=== PATIENT | female | born 1955 | race Caucasian/White ===

== ENCOUNTER 2017-12-06 14:51 | Emergency (ER) | payer MEDICAID, OTHER ==
[~2017-12-06] VITALS: Ht 167.6 cm; Wt 69.0 kg
[~2017-12-06 14:51] MED LIST: ASPI-518; CLON0.1T; COMBIV; ESCI20TA36; INSLAN; LISI-604; OXYB5TAB11; PRAV20TA57; SERT50TA12; TRAM50TA; [UNRECOGNIZED DRUG - CODE]
[2017-12-06 14:59] VITALS: BP 98/62
== END 2017-12-06 21:00 | disposition left against medical advice (07) ==
LOC: ER 14:51
DX: M25.551 Pain in right hip (principal); I10 Essential (primary) hypertension; E11.9 Type 2 diabetes mellitus without complications; F20.9 Schizophrenia, unspecified; F17.200 Nicotine dependence, unspecified, uncomplicated; Z53.21 Procedure and treatment not carried out due to patient leaving prior to being seen by health care provider

== ENCOUNTER 2018-07-29 13:08 | Emergency (ER) | payer OTHER ==
[~2018-07-29] VITALS: Ht 170.2 cm; Wt 68.0 kg
[~2018-07-29 13:08] MED LIST changes: +HYDR50TA55; -[UNRECOGNIZED DRUG - CODE]
[2018-07-29] MEDS ORDERED: SODIUM CHLORIDE 0.9% 1,000 ML IV ONE ×2 (14:21→16:51)
[2018-07-29 14:47] LABS: BASOPHILS % 0.5 % (0.0-2.0); HEMATOCRIT. 37.3 % (36.0-48.0); HEMOGLOBIN. 12.3 g/dL (12.0-16.0); LYMPHOCYTES % 22.8 % (20.0-50.0); MEAN CORPUSCULAR HEMOGLOBIN 31.9 pg (28.0-32.0); MEAN CORPUSCULAR VOLUME 96.9 fL (81.0-99.0); MEAN PLATELET VOLUME 9.1 fl (7.4-10.4); NEUTROPHILS % 65.7 % (40.0-76.0); PLATELET 236 x1000/uL (130-400); RED BLOOD CELL COUNT 3.85 mill/uL (4.2-5.4); RED CELL DISTRIBUTION WIDTH 14.3 % (11.6-14.6)
[2018-07-29 14:52] LABS: CHLORIDE 107 mEq/L (98-107)
[2018-07-29 14:54] LABS: INR 1.1; PROTHROMBIN TIME 10.6 sec (9.1-11.1)
[2018-07-29 15:27] LABS: CLARITY URINE CLOUDY (CLEAR); COLOR URINE YELLOW (YELLOW); KETONES URINE NEGATIVE (NEGATIVE); LEUKOCYTE ESTERASE URINE 3+ (NEGATIVE); NITRITE URINE POSITIVE (NEGATIVE); OCCULT BLOOD URINE TRACE (NEGATIVE); PROTEIN URINE NEGATIVE (NEGATIVE); SPECIFIC GRAVITY URINE 1.013 (1.005-1.030); UROBILINOGEN URINE 0.2 E.U./dL (0.2-1.0)
[2018-07-29] MEDS ORDERED: CEFTRIAXONE 1 G PREMIX 50 ML IV ONE (16:15)
[2018-07-29] MEDS ORDERED: IOHEXOL-350 100 ML BOTTLE ONE (16:32)
[2018-07-29 19:35] VITALS: BP 121/80
== END 2018-07-29 19:45 ==
LOC: ER 13:16 → CANRESERV 15:30 → ENRESERV 15:30 → CANBEDREQ 18:43 → ER 19:45
DX: N39.0 Urinary tract infection, site not specified (principal)
CPT/HCPCS: 36415; 71045; 74177; 80053; 81003; 83605; 83690; 85025; 85610; 87040; 87077; 87086; 87186; 93005; 96361; 96365; 99284; J0696; J7030; Q9967; Z7610

== ENCOUNTER 2018-08-13 19:55 | Emergency (ER) | payer OTHER ==
[~2018-08-13] VITALS: Ht 172.7 cm; Wt 68.0 kg
[2018-08-14 01:20] LABS: BASOPHILS % 0.5 % (0.0-2.0); EOSINOPHILS % 3.1 % (0.0-5.0); HEMOGLOBIN. 11.1 g/dL (12.0-16.0); LYMPHOCYTES % 24.8 % (20.0-50.0); MEAN CORPUSCULAR HEMOGLOBIN 32.4 pg (28.0-32.0); MEAN CORPUSCULAR VOLUME 96.5 fL (81.0-99.0); MEAN PLATELET VOLUME 9.1 fl (7.4-10.4); MONOCYTES % 12.6 % (2.0-8.0); PLATELET 182 x1000/uL (130-400); RED BLOOD CELL COUNT 3.42 mill/uL (4.2-5.4); RED CELL DISTRIBUTION WIDTH 14.5 % (11.6-14.6)
[2018-08-14 01:21] LABS: CHLORIDE 107 mEq/L (98-107)
[2018-08-14 01:23] LABS: INR 1.1; PROTHROMBIN TIME 10.8 sec (9.1-11.1)
[2018-08-14 02:20] VITALS: BP 110/51
== END 2018-08-14 02:53 | disposition left against medical advice (07) ==
LOC: ER 19:55
DX: S00.03XA Contusion of scalp, initial encounter (principal); W01.0XXA Fall on same level from slipping, tripping and stumbling without subsequent striking against object, initial encounter; R00.1 Bradycardia, unspecified; E11.9 Type 2 diabetes mellitus without complications; Y93.89 Activity, other specified; Y92.122 Bedroom in nursing home as the place of occurrence of the external cause
CPT/HCPCS: 36415; 71045; 83880; 84484; 93005; 99284

== ENCOUNTER 2020-05-19 17:16 | Emergency (ER) | payer MEDICARE, OTHER ==
[~2020-05-19] VITALS: Ht 175.3 cm; Wt 100.0 kg
[~2020-05-19 17:16] MED LIST changes: -ESCI20TA36; +ESCI20TA43; -OXYB5TAB11; +OXYB5TAB17
[2020-05-19 19:11] LABS: BASOPHILS % 0.6 % (0.0-2.0); EOSINOPHILS % 3.9 % (0.0-5.0); HEMATOCRIT. 35.6 % (36.0-48.0); HEMOGLOBIN. 11.8 g/dL (12.0-16.0); LYMPHOCYTES % 21.7 % (20.0-50.0); MEAN CORPUSCULAR HEMOGLOBIN 31.9 pg (28.0-32.0); MEAN CORPUSCULAR VOLUME 96.6 fL (81.0-99.0); MEAN PLATELET VOLUME 9.6 fl (7.4-10.4); MONOCYTES % 8.8 % (2.0-8.0); PLATELET 201 x1000/uL (130-400); RED BLOOD CELL COUNT 3.68 mill/uL (4.2-5.4); RED CELL DISTRIBUTION WIDTH 14.4 % (11.6-14.6)
[2020-05-19 19:14] LABS: CHLORIDE 109 mEq/L (98-107)
[2020-05-19 19:18] LABS: CLARITY URINE CLOUDY (CLEAR); COLOR URINE YELLOW (YELLOW); KETONES URINE NEGATIVE (NEGATIVE); LEUKOCYTE ESTERASE URINE 3+ (NEGATIVE); NITRITE URINE POSITIVE (NEGATIVE); OCCULT BLOOD URINE 1+ (NEGATIVE); PROTEIN URINE TRACE (NEGATIVE); SPECIFIC GRAVITY URINE 1.017 (1.005-1.030); UROBILINOGEN URINE 0.2 E.U./dL (0.2-1.0)
[2020-05-19 19:18] LABS: ETHANOL BLOOD < 10 mg/dL
[2020-05-19] MEDS ORDERED: NITROFURANTOIN 100MG M/M CAPSULE PO ONE (19:45)
[2020-05-19 20:03] LABS: *AMPHETAMINES SCREEN URINE NEGATIVE (NEGATIVE); *BARBITURATES SCREEN URINE NEGATIVE (NEGATIVE); *BENZODIAZEPINES SCREEN URINE NEGATIVE (NEGATIVE); *COCAINE SCREEN URINE NEGATIVE (NEGATIVE)
[2020-05-19 20:04] LABS: CANNABINOID URINE SCREEN NEGATIVE (NEGATIVE); METHADONE URINE SCREEN NEGATIVE (NEGATIVE); OPIATES URINE SCREEN NEGATIVE (NEGATIVE); PHENCYCLIDINE URINE SCREEN NEGATIVE (NEGATIVE)
[2020-05-19 21:05] VITALS: BP 121/71
== END 2020-05-19 21:35 | disposition home or self-care (01) ==
LOC: ER 17:16
DX: S09.8XXA Other specified injuries of head, initial encounter (principal); N39.0 Urinary tract infection, site not specified; S16.1XXA Strain of muscle, fascia and tendon at neck level, initial encounter; I10 Essential (primary) hypertension; E11.9 Type 2 diabetes mellitus without complications; W01.0XXA Fall on same level from slipping, tripping and stumbling without subsequent striking against object, initial encounter; Y93.89 Activity, other specified; Y92.89 Other specified places as the place of occurrence of the external cause; Z79.82 Long term (current) use of aspirin; Z79.899 Other long term (current) drug therapy
CPT/HCPCS: 36415; 71045; 80053; 80305; 80320; 81003; 83605; 84484; 85025; 87077; 87186; 93005; 99285; G0480

== ENCOUNTER 2020-06-20 09:50 | Emergency (ER) | payer MEDICARE, OTHER ==
[~2020-06-20] VITALS: Ht 170.2 cm; Wt 73.0 kg
[2020-06-20 12:00] VITALS: BP 110/48
[2020-06-20 12:05] LABS: BASOPHILS % 0.5 % (0.0-2.0); EOSINOPHILS % 0.9 % (0.0-5.0); HEMATOCRIT. 38.3 % (36.0-48.0); HEMOGLOBIN. 12.6 g/dL (12.0-16.0); LYMPHOCYTES % 13.3 % (20.0-50.0); MEAN CORPUSCULAR HEMOGLOBIN 31.8 pg (28.0-32.0); MEAN CORPUSCULAR VOLUME 96.6 fL (81.0-99.0); MEAN PLATELET VOLUME 9.2 fl (7.4-10.4); MONOCYTES % 10.7 % (2.0-8.0); NEUTROPHILS % 74.6 % (40.0-76.0); PLATELET 145 x1000/uL (130-400); RED BLOOD CELL COUNT 3.97 mill/uL (4.2-5.4); RED CELL DISTRIBUTION WIDTH 14.4 % (11.6-14.6)
[2020-06-20 12:15] LABS: CHLORIDE 113 mEq/L (98-107); INR 1.1; PROTHROMBIN TIME 11.8 sec (9.6-11.0)
== END 2020-06-20 15:42 | disposition home or self-care (01) ==
LOC: ER 09:56
DX: U07.1 COVID-19 (principal); I11.9 Hypertensive heart disease without heart failure; E11.9 Type 2 diabetes mellitus without complications; Z79.4 Long term (current) use of insulin
CPT/HCPCS: 36415; 71045; 80048; 83605; 83615; 84145; 85025; 85610; 87040; 99284; C9803; U0003

== ENCOUNTER 2023-07-27 12:55 | Emergency (ER) | payer MEDICARE, OTHER ==
[~2023-07-27] VITALS: Ht 167.6 cm; Wt 59.0 kg
[~2023-07-27 12:55] MED LIST changes: +ESCI20TA37; -ESCI20TA43; -LISI-604; +LISI20TA31; +SERT-422; -SERT50TA12
[2023-07-27 12:59] VITALS: O2SAT 100
[2023-07-27 14:20] LABS: BASOPHILS % 0.3 % (0.0-2.0); EOSINOPHILS % 0.3 % (0.0-5.0); HEMATOCRIT. 32.3 % (36.0-48.0); HEMOGLOBIN. 10.8 g/dL (12.0-16.0); LYMPHOCYTES % 8.7 % (20.0-50.0); MEAN CORPUSCULAR HEMOGLOBIN 31.6 pg (28.0-32.0); MEAN CORPUSCULAR HGB CONC 33.5 g/dL (31.0-37.0); MEAN CORPUSCULAR VOLUME 94.1 fL (81.0-99.0); MEAN PLATELET VOLUME 9.1 fl (7.4-10.4); MONOCYTES % 8.5 % (2.0-8.0); NEUTROPHILS % 82.2 % (40.0-76.0); PLATELET 240 x1000/uL (130-400); RED BLOOD CELL COUNT 3.43 mill/uL (4.2-5.4); RED CELL DISTRIBUTION WIDTH 14.2 % (11.6-14.6)
[2023-07-27 14:29] VITALS: BP 138/75; PULSE 60; RESP 14; TEMP 98
[2023-07-27 14:29] LABS: ALANINE AMINOTRANSFERASE 28 IU/L (10-49); ALBUMIN 3.9 g/dL (3.2-4.8); ASPARTATE AMINOTRANSFERASE 54 IU/L (<34); BILIRUBIN TOTAL 0.5 mg/dL (0.1-1.0); CALCIUM 9.3 mg/dL (8.7-10.4); CARBON DIOXIDE 23 mEq/L (21-32); CHLORIDE 102 mEq/L (98-107); CREATININE 1.2 mg/dL (0.6-1.0); GLUCOSE 177 mg/dL (70-105); POTASSIUM 4.1 mEq/L (3.5-5.1); PROTEIN TOTAL 9.4 g/dL (6.0-8.3); SODIUM 131 mEq/L (136-145); TROPONIN I HIGH SENSITIVITY 9 ng/L (3.0-34); UREA NITROGEN BLOOD 31 mg/dL (9-23)
[2023-07-27] MEDS: SODIUM CHLORIDE 0.9% 1,000 ML IV ONE (14:30)
== END 2023-07-27 22:55 | disposition home or self-care (01) ==
LOC: ER 12:55
DX: E86.0 Dehydration (principal); D64.9 Anemia, unspecified; F32.9 Major depressive disorder, single episode, unspecified; E11.9 Type 2 diabetes mellitus without complications; I10 Essential (primary) hypertension; Z87.440 Personal history of urinary (tract) infections; W18.39XA Other fall on same level, initial encounter; Y93.89 Activity, other specified; Y92.89 Other specified places as the place of occurrence of the external cause; Y99.8 Other external cause status
CPT/HCPCS: 80053; 85025; 84484; 36415; 73060; 73610; 70450; 93005; 96360; 99285; J7030; Z7610 ×3

== ENCOUNTER 2023-08-29 14:18 | Emergency (ER) | payer MEDICARE, OTHER ==
[~2023-08-29] VITALS: Ht 162.6 cm; Wt 75.0 kg
[~2023-08-29 14:18] MED LIST changes: +OXYB-52; -OXYB5TAB17
[2023-08-29 14:20] VITALS: O2SAT 97
[2023-08-29 15:32] LABS: BASOPHILS % 0.4 % (0.0-2.0); EOSINOPHILS % 1.4 % (0.0-5.0); HEMATOCRIT. 31.9 % (36.0-48.0); HEMOGLOBIN. 10.4 g/dL (12.0-16.0); MEAN CORPUSCULAR HEMOGLOBIN 29.9 pg (28.0-32.0); MEAN CORPUSCULAR HGB CONC 32.5 g/dL (31.0-37.0); MEAN PLATELET VOLUME 8.7 fl (7.4-10.4); MONOCYTES % 10.2 % (2.0-8.0); PLATELET 247 x1000/uL (130-400); RED BLOOD CELL COUNT 3.47 mill/uL (4.2-5.4); RED CELL DISTRIBUTION WIDTH 15.1 % (11.6-14.6)
[2023-08-29 15:40] LABS: INR 1.1; PROTHROMBIN TIME 12.2 sec (9.6-11.0)
[2023-08-29 15:45] LABS: ALANINE AMINOTRANSFERASE 21 IU/L (10-49); ALBUMIN 3.8 g/dL (3.2-4.8); ASPARTATE AMINOTRANSFERASE 24 IU/L (<34); BILIRUBIN TOTAL 0.4 mg/dL (0.1-1.0); CARBON DIOXIDE 26 mEq/L (21-32); CHLORIDE 102 mEq/L (98-107); GLUCOSE 153 mg/dL (70-105); POTASSIUM 3.9 mEq/L (3.5-5.1); PROTEIN TOTAL 8.6 g/dL (6.0-8.3); SODIUM 134 mEq/L (136-145); TROPONIN I HIGH SENSITIVITY 7 ng/L (3.0-34); UREA NITROGEN BLOOD 20 mg/dL (9-23)
[2023-08-30 09:30] VITALS: BP 138/72; PULSE 77; RESP 16; TEMP 98.8
== END 2023-08-30 10:39 | disposition home or self-care (01) ==
LOC: ER 14:45
DX: M79.604 Pain in right leg (principal); F32.A Depression, unspecified; E11.9 Type 2 diabetes mellitus without complications; I10 Essential (primary) hypertension
CPT/HCPCS: 36415; 71045; 80053; 84484; 85025; 93005; 93971; 99285

== ENCOUNTER 2024-10-20 19:24 | Emergency (ER) | payer MEDICARE, MEDICAID ==
[~2024-10-20] VITALS: Ht 172.7 cm; Wt 69.0 kg
[~2024-10-20 19:24] MED LIST changes: +ASPI-1406 PO; -ASPI-518; -CLON0.1T; -COMBIV; +CYCL5TAB3 PO; -ESCI20TA37; +GABA-1180 PO; -HYDR50TA55; +IBUP-2029 PO; -INSLAN; +INSU100I28 SUBCUT; +LIP40 PO; -LISI20TA31; +LISI20TA31 PO; +LOPE2TAB26 PO; +MELA5TAB21 PO; +MULT-380 PO; -OXYB-52; +OXYBUTYNIN 10 MG PO; -PRAV20TA57; +QUET25TA36 PO; -SERT-422; +SERT25TA74 PO; +TEMA15CA PO; -TRAM50TA; +TRAM50TA3 PO
[2024-10-20 19:40] VITALS: O2SAT 98
[2024-10-20 20:47] LABS: BASOPHILS % 0.4 % (0.0-2.0); EOSINOPHILS % 2.5 % (0.0-5.0); HEMATOCRIT. 34.4 % (36.0-48.0); HEMOGLOBIN. 11.5 g/dL (12.0-16.0); LYMPHOCYTES % 24.4 % (20.0-50.0); MEAN CORPUSCULAR HEMOGLOBIN 31.6 pg (28.0-32.0); MEAN CORPUSCULAR HGB CONC 33.3 g/dL (31.0-37.0); MEAN CORPUSCULAR VOLUME 94.7 fL (81.0-99.0); MEAN PLATELET VOLUME 9.4 fl (7.4-10.4); MONOCYTES % 14.2 % (2.0-8.0); NEUTROPHILS % 58.5 % (40.0-76.0); PLATELET 202 x1000/uL (130-400); RED BLOOD CELL COUNT 3.63 mill/uL (4.2-5.4); RED CELL DISTRIBUTION WIDTH 13.7 % (11.6-14.6); WHITE BLOOD COUNT 4.8 x1000/uL (4.5-11.0)
[2024-10-20 20:53] LABS: POTASSIUM 4.3 mEq/L (3.5-5.1)
[2024-10-20 20:54] LABS: CALCIUM 9.2 mg/dL (8.7-10.4)
[2024-10-20 20:59] LABS: CREATININE 1.1 mg/dL (0.6-1.0)
[2024-10-20] MEDS: SODIUM CHLORIDE 0.9% 250 ML IV ONE (21:28)
[2024-10-20 21:44] LABS: CLARITY URINE CLEAR (CLEAR); COLOR URINE YELLOW (YELLOW); GLUCOSE URINE NEGATIVE (NEGATIVE); KETONES URINE NEGATIVE (NEGATIVE); LEUKOCYTE ESTERASE URINE 1+ (NEGATIVE); NITRITE URINE NEGATIVE (NEGATIVE); OCCULT BLOOD URINE NEGATIVE (NEGATIVE); PROTEIN URINE NEGATIVE (NEGATIVE); SPECIFIC GRAVITY URINE 1.004 (1.005-1.030); UROBILINOGEN URINE 0.2 E.U./dL (0.2-1.0)
[2024-10-20 21:56] LABS: BACTERIA URINE NONE SEEN; RBC URINE NONE SEEN /hpf (0-2); SQUAMOUS EPITHELIAL CELL URINE RARE /lpf (RARE/1+)
[2024-10-20 23:37] VITALS: BP 110/68; PULSE 74; RESP 19; TEMP 36.5; O2SAT 98
== END 2024-10-21 00:05 | disposition home or self-care (01) ==
LOC: ER 19:24
DX: E86.0 Dehydration (principal); F32.A Depression, unspecified; E78.00 Pure hypercholesterolemia, unspecified; E11.9 Type 2 diabetes mellitus without complications; F41.9 Anxiety disorder, unspecified; I51.9 Heart disease, unspecified; Z79.899 Other long term (current) drug therapy; Z79.82 Long term (current) use of aspirin; Z79.4 Long term (current) use of insulin
CPT/HCPCS: 99283; 80048; 81003; 85025; 36415; J7050

== ENCOUNTER 2024-10-25 11:36 | Emergency (ER) | payer MEDICARE, MEDICAID ==
[~2024-10-25] VITALS: Ht 165.1 cm; Wt 78.0 kg
[2024-10-25 11:38] VITALS: O2SAT 96
[2024-10-25 12:28] LABS: BASOPHILS % 0.4 % (0.0-2.0); EOSINOPHILS % 1.2 % (0.0-5.0); HEMOGLOBIN. 11.5 g/dL (12.0-16.0); LYMPHOCYTES % 17.5 % (20.0-50.0); MEAN CORPUSCULAR HEMOGLOBIN 31.1 pg (28.0-32.0); MEAN CORPUSCULAR HGB CONC 32.8 g/dL (31.0-37.0); MEAN CORPUSCULAR VOLUME 94.9 fL (81.0-99.0); MEAN PLATELET VOLUME 9.4 fl (7.4-10.4); MONOCYTES % 7.3 % (2.0-8.0); NEUTROPHILS % 73.6 % (40.0-76.0); PLATELET 196 x1000/uL (130-400); RED BLOOD CELL COUNT 3.68 mill/uL (4.2-5.4); RED CELL DISTRIBUTION WIDTH 13.5 % (11.6-14.6); WHITE BLOOD COUNT 5.6 x1000/uL (4.5-11.0)
[2024-10-25] MEDS ORDERED: ACETAMINOPHEN 325MG TABLET PO ONE (12:30)
[2024-10-25] MEDS: SODIUM CHLORIDE 0.9% 1,000 ML IV ONE (12:33)
[2024-10-25 12:35] LABS: CHLORIDE 106 mEq/L (98-107); POTASSIUM 3.9 mEq/L (3.5-5.1); SODIUM 135 mEq/L (136-145)
[2024-10-25 12:36] LABS: CARBON DIOXIDE 25 mEq/L (21-32)
[2024-10-25 12:37] LABS: CALCIUM 9.2 mg/dL (8.7-10.4)
[2024-10-25 12:41] LABS: GLUCOSE 137 mg/dL (70-105); UREA NITROGEN BLOOD 13 mg/dL (9-23)
[2024-10-25 12:42] LABS: TROPONIN I HIGH SENSITIVITY 6 ng/L (3.0-34)
[2024-10-25 12:53] LABS: CLARITY URINE CLEAR (CLEAR); COLOR URINE YELLOW (YELLOW); GLUCOSE URINE NEGATIVE (NEGATIVE); KETONES URINE NEGATIVE (NEGATIVE); LEUKOCYTE ESTERASE URINE 2+ (NEGATIVE); NITRITE URINE NEGATIVE (NEGATIVE); OCCULT BLOOD URINE NEGATIVE (NEGATIVE); PROTEIN URINE NEGATIVE (NEGATIVE); SPECIFIC GRAVITY URINE 1.004 (1.005-1.030); UROBILINOGEN URINE 0.2 E.U./dL (0.2-1.0)
[2024-10-25 13:16] LABS: BACTERIA URINE 1+; SQUAMOUS EPITHELIAL CELL URINE FEW /lpf (RARE/1+)
[2024-10-25 13:17] LABS: RBC URINE 0-2 /hpf (0-2)
[2024-10-25] MEDS: CEFTRIAXONE 1GM/50ML 50 ML IV ONE (14:22)
[2024-10-25] MEDS ORDERED: CEPH500C2 MT (15:48)
[2024-10-25 18:00] VITALS: BP 129/62; PULSE 68; RESP 14; TEMP 36.6; O2SAT 96
== END 2024-10-25 18:03 | disposition home or self-care (01) ==
LOC: ER 11:36
DX: R42 Dizziness and giddiness (principal); N39.0 Urinary tract infection, site not specified; E11.9 Type 2 diabetes mellitus without complications; E78.00 Pure hypercholesterolemia, unspecified; F20.9 Schizophrenia, unspecified; I10 Essential (primary) hypertension; Z79.82 Long term (current) use of aspirin; Z79.899 Other long term (current) drug therapy; Z87.440 Personal history of urinary (tract) infections; Z87.891 Personal history of nicotine dependence
CPT/HCPCS: 99285; 96365; 96361; 71045; 80048; 81003; 85025; 84484; 36415; 93005; J0696; J7030; A4606

== ENCOUNTER 2024-12-01 15:07 | Emergency (ER) | payer MEDICARE, MEDICAID ==
[~2024-12-01] VITALS: Ht 167.6 cm; Wt 82.0 kg
[~2024-12-01 15:07] MED LIST changes: +CEPH500C2 MT
[2024-12-01 15:20] VITALS: O2SAT 97
[2024-12-01 16:42] LABS: BASOPHILS % 0.5 % (0.0-2.0); HEMATOCRIT. 32.5 % (36.0-48.0); HEMOGLOBIN. 11.1 g/dL (12.0-16.0); LYMPHOCYTES % 20.3 % (20.0-50.0); MEAN CORPUSCULAR HEMOGLOBIN 31.8 pg (28.0-32.0); MEAN CORPUSCULAR HGB CONC 34.2 g/dL (31.0-37.0); MEAN CORPUSCULAR VOLUME 93.1 fL (81.0-99.0); MEAN PLATELET VOLUME 9.7 fl (7.4-10.4); MONOCYTES % 10.5 % (2.0-8.0); NEUTROPHILS % 67.7 % (40.0-76.0); PLATELET 179 x1000/uL (130-400); RED BLOOD CELL COUNT 3.49 mill/uL (4.2-5.4); RED CELL DISTRIBUTION WIDTH 13.5 % (11.6-14.6)
[2024-12-01 16:50] LABS: CARBON DIOXIDE 24 mEq/L (21-32); CHLORIDE 97 mEq/L (98-107); INR 1.1; PROTHROMBIN TIME 11.4 sec (9.6-11.0); SODIUM 129 mEq/L (136-145)
[2024-12-01 16:51] LABS: CALCIUM 9.2 mg/dL (8.7-10.4)
[2024-12-01 16:56] LABS: GLUCOSE 139 mg/dL (70-105); UREA NITROGEN BLOOD 13 mg/dL (9-23)
[2024-12-01 16:57] LABS: ALANINE AMINOTRANSFERASE 30 IU/L (10-49); ASPARTATE AMINOTRANSFERASE 33 IU/L (<34)
[2024-12-01 16:58] LABS: ALBUMIN 3.9 g/dL (3.2-4.8); BILIRUBIN DIRECT 0.1 mg/dL (<=3.0); BILIRUBIN TOTAL 0.3 mg/dL (0.1-1.0); PROTEIN TOTAL 8.6 g/dL (6.0-8.3); TROPONIN I HIGH SENSITIVITY 10 ng/L (3.0-34)
[2024-12-01 19:09] LABS: TROPONIN I HIGH SENSITIVITY 10 ng/L (3.0-34)
[2024-12-01] MEDS ORDERED: SODIUM CHLORIDE 0.9% 500 ML IV NR (20:30)
[2024-12-01 20:39] LABS: CLARITY URINE CLEAR (CLEAR); COLOR URINE YELLOW (YELLOW); GLUCOSE URINE NEGATIVE (NEGATIVE); KETONES URINE NEGATIVE (NEGATIVE); LEUKOCYTE ESTERASE URINE TRACE (NEGATIVE); NITRITE URINE NEGATIVE (NEGATIVE); OCCULT BLOOD URINE TRACE (NEGATIVE); PROTEIN URINE NEGATIVE (NEGATIVE); SPECIFIC GRAVITY URINE 1.003 (1.005-1.030); UROBILINOGEN URINE 0.2 E.U./dL (0.2-1.0)
[2024-12-01 20:48] LABS: BACTERIA URINE TRACE; SQUAMOUS EPITHELIAL CELL URINE FEW /lpf (RARE/1+)
[2024-12-02 00:08] VITALS: BP 135/68; PULSE 59; RESP 16; TEMP 36.8; O2SAT 98
== END 2024-12-02 00:21 | disposition home or self-care (01) ==
LOC: ER 15:07
DX: E87.1 Hypo-osmolality and hyponatremia (principal); I10 Essential (primary) hypertension; E11.9 Type 2 diabetes mellitus without complications; E78.00 Pure hypercholesterolemia, unspecified; Z79.82 Long term (current) use of aspirin; Z79.899 Other long term (current) drug therapy; Z86.59 Personal history of other mental and behavioral disorders
CPT/HCPCS: 36415; 71045; 80048; 80076; 81003; 84484; 85025; 93005; 99285; A4606

== ENCOUNTER 2024-12-04 16:07 | Emergency (ER) | payer MEDICARE, MEDICAID ==
[~2024-12-04] VITALS: Ht 165.1 cm; Wt 68.0 kg
[2024-12-04 16:25] VITALS: O2SAT 97
[2024-12-04 17:27] LABS: CLARITY URINE CLEAR (CLEAR); COLOR URINE YELLOW (YELLOW); GLUCOSE URINE NEGATIVE (NEGATIVE); KETONES URINE NEGATIVE (NEGATIVE); LEUKOCYTE ESTERASE URINE 1+ (NEGATIVE); NITRITE URINE NEGATIVE (NEGATIVE); OCCULT BLOOD URINE NEGATIVE (NEGATIVE); PROTEIN URINE NEGATIVE (NEGATIVE); SPECIFIC GRAVITY URINE 1.004 (1.005-1.030); UROBILINOGEN URINE 0.2 E.U./dL (0.2-1.0)
[2024-12-04 17:46] LABS: BACTERIA URINE NONE SEEN; RBC URINE NONE SEEN /hpf (0-2); SQUAMOUS EPITHELIAL CELL URINE FEW /lpf (RARE/1+)
[2024-12-04 17:59] LABS: BASOPHILS % 0.4 % (0.0-2.0); EOSINOPHILS % 0.6 % (0.0-5.0); HEMATOCRIT. 33.8 % (36.0-48.0); HEMOGLOBIN. 11.3 g/dL (12.0-16.0); LYMPHOCYTES % 20.7 % (20.0-50.0); MEAN CORPUSCULAR HGB CONC 33.3 g/dL (31.0-37.0); MEAN CORPUSCULAR VOLUME 93.2 fL (81.0-99.0); MEAN PLATELET VOLUME 9.7 fl (7.4-10.4); MONOCYTES % 10.7 % (2.0-8.0); NEUTROPHILS % 67.6 % (40.0-76.0); PLATELET 176 x1000/uL (130-400); RED BLOOD CELL COUNT 3.63 mill/uL (4.2-5.4); RED CELL DISTRIBUTION WIDTH 13.7 % (11.6-14.6); WHITE BLOOD COUNT 5.1 x1000/uL (4.5-11.0)
[2024-12-04 18:21] LABS: POTASSIUM 4.1 mEq/L (3.5-5.1)
[2024-12-04 18:22] LABS: CALCIUM 9.7 mg/dL (8.7-10.4)
[2024-12-04 18:27] LABS: CREATININE 1.1 mg/dL (0.6-1.0)
[2024-12-04] MEDS: KETOROLAC 30MG/ML VIAL IV ONE (18:49)
[2024-12-04] MEDS: SODIUM CHLORIDE 0.9% 500 ML IV ONE (18:50)
[2024-12-04] MEDS ORDERED: LIDO-53 TP (18:55)
[2024-12-04] MEDS ORDERED: IBUP-2028 MT (18:55)
[2024-12-04] MEDS ORDERED: CEFP200T13 MT (18:55)
[2024-12-04 19:33] LABS: INR 1.1; PROTHROMBIN TIME 11.6 sec (9.6-11.0)
[2024-12-04 19:52] VITALS: TEMP 36.7
[2024-12-04] MEDS: CEFTRIAXONE 1GM/50ML 50 ML IV ONE (20:15)
[2024-12-04 21:51] VITALS: BP 116/74; PULSE 58; RESP 14; O2SAT 98
== END 2024-12-04 21:57 | disposition home or self-care (01) ==
LOC: ER 16:07
DX: M16.11 Unilateral primary osteoarthritis, right hip (principal); N39.0 Urinary tract infection, site not specified; E11.9 Type 2 diabetes mellitus without complications; E78.00 Pure hypercholesterolemia, unspecified; F20.9 Schizophrenia, unspecified; F31.9 Bipolar disorder, unspecified; F41.9 Anxiety disorder, unspecified; I10 Essential (primary) hypertension; M47.816 Spondylosis without myelopathy or radiculopathy, lumbar region; R53.1 Weakness; Z79.82 Long term (current) use of aspirin; Z79.899 Other long term (current) drug therapy; W18.39XA Other fall on same level, initial encounter; Y93.89 Activity, other specified; Y92.89 Other specified places as the place of occurrence of the external cause; Y99.8 Other external cause status
CPT/HCPCS: 99285; 96365; 71045; 96375; 80048; 81003; 83880; 85025; 85610; 87086; 87186; 84484; 87077; 36415; 72100; 72170; 93005; J1885; J0696; J7040; 96361

== ENCOUNTER 2024-12-05 11:35 | Inpatient (IN) | payer MEDICARE, MEDICAID ==
[~2024-12-05] VITALS: Ht 170.2 cm; Wt 86.2 kg
[~2024-12-05 11:35] MED LIST changes: +CEFP200T13 MT; +IBUP-2028 MT; +LIDO-53 TP
[2024-12-05 12:59] LABS: BASOPHILS % 0.6 % (0.0-2.0); EOSINOPHILS % 0.4 % (0.0-5.0); HEMATOCRIT. 32.8 % (36.0-48.0); HEMOGLOBIN. 11.1 g/dL (12.0-16.0); LYMPHOCYTES % 17.6 % (20.0-50.0); MEAN CORPUSCULAR HEMOGLOBIN 31.8 pg (28.0-32.0); MEAN CORPUSCULAR HGB CONC 33.8 g/dL (31.0-37.0); MEAN CORPUSCULAR VOLUME 93.9 fL (81.0-99.0); MEAN PLATELET VOLUME 9.5 fl (7.4-10.4); MONOCYTES % 7.7 % (2.0-8.0); NEUTROPHILS % 73.7 % (40.0-76.0); PLATELET 183 x1000/uL (130-400); RED CELL DISTRIBUTION WIDTH 13.4 % (11.6-14.6); WHITE BLOOD COUNT 5.3 x1000/uL (4.5-11.0)
[2024-12-05 13:12] LABS: CHLORIDE 96 mEq/L (98-107); POTASSIUM 3.8 mEq/L (3.5-5.1); SODIUM 128 mEq/L (136-145)
[2024-12-05 13:13] LABS: CALCIUM 9.5 mg/dL (8.7-10.4); CARBON DIOXIDE 24 mEq/L (21-32)
[2024-12-05 13:18] LABS: CREATININE 0.9 mg/dL (0.6-1.0); GLUCOSE 122 mg/dL (70-105); UREA NITROGEN BLOOD 10 mg/dL (9-23)
[2024-12-05 14:20] LABS: CLARITY URINE CLEAR (CLEAR); COLOR URINE YELLOW (YELLOW); GLUCOSE URINE NEGATIVE (NEGATIVE); KETONES URINE NEGATIVE (NEGATIVE); LEUKOCYTE ESTERASE URINE TRACE (NEGATIVE); NITRITE URINE NEGATIVE (NEGATIVE); OCCULT BLOOD URINE NEGATIVE (NEGATIVE); PH URINE 5.5 (4.5-8.0); PROTEIN URINE NEGATIVE (NEGATIVE); SPECIFIC GRAVITY URINE 1.004 (1.005-1.030); UROBILINOGEN URINE 0.2 E.U./dL (0.2-1.0)
[2024-12-05] MEDS: SODIUM CHLORIDE 0.9% 500 ML IV ONE ×2 (14:29→18:46)
[2024-12-05 14:45] LABS: BACTERIA URINE 1+; RBC URINE 0-2 /hpf (0-2); WBC URINE 0-2 /hpf (0-2)
[2024-12-05] MEDS ORDERED: MAGNESIUM/ALUMINUM HYDROXIDE/SIMETHICONE 30ML UDC PO PRN (15:45)
[2024-12-05] MEDS ORDERED: DEXTROSE 50% WATER 50ML SYRINGE IV PRN (15:45)
[2024-12-05] MEDS ORDERED: CLONIDINE 0.1MG TABLET PO PRN (15:45)
[2024-12-05] MEDS ORDERED: ONDANSETRON HCL 4MG/2ML INJ IV PRN (15:45)
[2024-12-05] MEDS ORDERED: DOCUSATE SODIUM 100MG CAPSULE PO PRN (15:45)
[2024-12-05] MEDS ORDERED: GUAIFENESIN 200MG/10ML SUGAR FREE UDC PO PRN (15:45)
[2024-12-05 16:29] LABS: PHOSPHORUS 2.1 mg/dL (2.5-4.9)
[2024-12-05] MEDS: BLOOD SUGAR DIAGNOSTIC STRIP TEST SCH (17:00)
[2024-12-05] MEDS: INSULIN LISPRO 100 UNITS/ML SUBCUT SCH (17:22)
[2024-12-05 18:14] VITALS: BP 135/89; PULSE 75; RESP 12; TEMP 36.7; O2SAT 98
[2024-12-05 19:30] VITALS: BP 135/89; PULSE 75; RESP 17; TEMP 36.8
[2024-12-05 20:00] VITALS: BP 125/96; PULSE 72; RESP 16; TEMP 36.7; O2SAT 92
[2024-12-05] MEDS: POTASSIUM PHOSPHATE 15 MMOL in DEXT 5% WATER 245 ML IV SCH (20:17)
[2024-12-05] MEDS: OXYBUTYNIN CHLORIDE 5MG TABLET PO SCH (22:12)
[2024-12-05] MEDS: QUETIAPINE FUMARATE 25MG TABLET PO SCH (22:13)
[2024-12-05] MEDS: ATORVASTATIN CALCIUM 40MG TABLET PO SCH (22:13)
[2024-12-05] MEDS: FAMOTIDINE 20MG TABLET PO SCH (22:14)
[2024-12-05] MEDS: GABAPENTIN 300MG CAPSULE PO SCH (22:14)
[2024-12-05] MEDS: ACETAMINOPHEN 325MG TABLET PO PRN (22:18)
[2024-12-05] MEDS: MAGNESIUM 4 G PREMIX 100 ML IV SCH (22:24)
[2024-12-05 23:37] LABS: TROPONIN I HIGH SENSITIVITY 23 ng/L (3.0-34)
[2024-12-05 23:38] LABS: CREATINE KINASE 227 IU/L (34-145)
[2024-12-06] VITALS: BP 92/56; PULSE 97; RESP 17; TEMP 36.7; O2SAT 95
[2024-12-06 04:00] VITALS: BP 127/84; PULSE 84; RESP 16; TEMP 36.2; O2SAT 97
[2024-12-06 07:29] LABS: TROPONIN I HIGH SENSITIVITY 23 ng/L (3.0-34)
[2024-12-06 07:31] LABS: CARBON DIOXIDE 24 mEq/L (21-32); CHLORIDE 106 mEq/L (98-107); POTASSIUM 4.3 mEq/L (3.5-5.1); SODIUM 137 mEq/L (136-145)
[2024-12-06 07:34] LABS: T4 FREE 1.21 ng/dL (0.89-1.76); THYROID STIMULATING HORMONE 8.17 uIU/mL (0.55-4.78)
[2024-12-06 07:35] LABS: CREATINE KINASE 186 IU/L (34-145)
[2024-12-06 07:37] LABS: CREATININE 0.8 mg/dL (0.6-1.0); GLUCOSE 93 mg/dL (70-105); TRIGLYCERIDE 36 mg/dL (0-150); UREA NITROGEN BLOOD 9 mg/dL (9-23)
[2024-12-06 07:38] LABS: LDL CHOLESTEROL 35 mg/dL (5-100)
[2024-12-06 07:39] LABS: CHOLESTEROL 85 mg/dL (<200); HDL CHOLESTEROL 39 mg/dL (>65)
[2024-12-06 08:00] VITALS: BP 121/54; PULSE 82; RESP 18; TEMP 37.2; O2SAT 96
[2024-12-06 08:14] LABS: BASOPHILS % 0.8 % (0.0-2.0); EOSINOPHILS % 1.9 % (0.0-5.0); HEMATOCRIT. 34.4 % (36.0-48.0); HEMOGLOBIN. 11.4 g/dL (12.0-16.0); LYMPHOCYTES % 29.9 % (20.0-50.0); MEAN CORPUSCULAR HGB CONC 33.3 g/dL (31.0-37.0); MEAN CORPUSCULAR VOLUME 93.3 fL (81.0-99.0); MEAN PLATELET VOLUME 10.6 fl (7.4-10.4); MONOCYTES % 14.3 % (2.0-8.0); NEUTROPHILS % 53.1 % (40.0-76.0); PLATELET 166 x1000/uL (130-400); RED BLOOD CELL COUNT 3.68 mill/uL (4.2-5.4); RED CELL DISTRIBUTION WIDTH 13.7 % (11.6-14.6); WHITE BLOOD COUNT 3.7 x1000/uL (4.5-11.0)
[2024-12-06] MEDS: ASPIRIN 81MG EC TABLET PO SCH (09:00)
[2024-12-06] MEDS: LISINOPRIL 20MG TABLET PO SCH (09:00)
[2024-12-06] MEDS: INSULIN GLARGINE 100 UNITS/ML SUBCUT SCH (11:22)
[2024-12-06 12:00] VITALS: BP 119/62; PULSE 65; RESP 20; TEMP 36.8; O2SAT 100
[2024-12-06 12:19] LABS: OSMOLALITY URINE 134 mOsm/kg (500-850)
[2024-12-06 12:25] LABS: SODIUM URINE RANDOM 34 mEq/L
[2024-12-06 16:00] VITALS: BP 123/52; PULSE 62; RESP 18; TEMP 36.6; O2SAT 97
[2024-12-06] MEDS: SODIUM CHLORIDE 0.9% 1,000 ML IV SCH (16:24)
[2024-12-06 20:00] VITALS: BP 112/43; PULSE 60; RESP 18; TEMP 36.3; O2SAT 95
[2024-12-07] VITALS (7 sets, daily range): BP systolic 94–124; BP diastolic 43–59; PULSE 64–92; RESP 16–18; TEMP 35.9–36.5; O2SAT 93–98
[2024-12-07 06:35] LABS: HEMATOCRIT 32.2 % (36.0-48.0); HEMOGLOBIN 10.8 g/dL (12.0-16.0); MEAN CORPUSCULAR HEMOGLOBIN 31.5 pg (28.0-32.0); MEAN CORPUSCULAR HGB CONC 33.4 g/dL (31.0-37.0); MEAN CORPUSCULAR VOLUME 94.1 fL (81.0-99.0); PLATELET 155 x1000/uL (130-400); RED BLOOD CELL COUNT 3.42 mill/uL (4.2-5.4); WHITE BLOOD COUNT 4.7 x1000/uL (4.5-11.0)
[2024-12-07 06:55] LABS: CARBON DIOXIDE 24 mEq/L (21-32); CHLORIDE 108 mEq/L (98-107); POTASSIUM 4.1 mEq/L (3.5-5.1); SODIUM 139 mEq/L (136-145)
[2024-12-07 06:56] LABS: CALCIUM 9.5 mg/dL (8.7-10.4)
[2024-12-07 07:00] LABS: ALBUMIN 3.2 g/dL (3.2-4.8); GLUCOSE 113 mg/dL (70-105)
[2024-12-07 07:01] LABS: CREATININE 0.9 mg/dL (0.6-1.0); UREA NITROGEN BLOOD 13 mg/dL (9-23)
[2024-12-07 07:03] LABS: PHOSPHORUS 3.3 mg/dL (2.5-4.9)
[2024-12-07] MEDS ORDERED: SERT25TA74 PO (11:43)
[2024-12-07] MEDS: QUETIAPINE FUMARATE 25MG TABLET PO SCH (13:33)
[2024-12-08] VITALS: BP 105/63; PULSE 72; RESP 16; TEMP 36.3; O2SAT 97
[2024-12-08 04:00] VITALS: BP 108/80; PULSE 82; RESP 16; TEMP 36.2; O2SAT 98
[2024-12-08 08:00] VITALS: BP 97/44; PULSE 81; RESP 19; TEMP 36.9; O2SAT 98
[2024-12-08 09:52] VITALS: BP 97/44; PULSE 81; TEMP 98.4; O2SAT 98
== END 2024-12-08 10:28 | DRG 641 ==
LOC: ER 11:46 → 5WST 14:22 → EDBEDREQTM 14:27 → EDBEDREQ 14:27
PROVIDERS: ADMIT Internal Medicine; ATTEND Internal Medicine
PROC: GZ56ZZZ Individual Psychotherapy, Supportive (ICD-10-PCS; principal; 2024-12-07)
DX: E87.1 Hypo-osmolality and hyponatremia (principal); E83.42 Hypomagnesemia; E83.39 Other disorders of phosphorus metabolism; E11.9 Type 2 diabetes mellitus without complications; D64.9 Anemia, unspecified; I10 Essential (primary) hypertension; E03.8 Other specified hypothyroidism; E78.00 Pure hypercholesterolemia, unspecified; F41.9 Anxiety disorder, unspecified; I25.10 Atherosclerotic heart disease of native coronary artery without angina pectoris; J44.9 Chronic obstructive pulmonary disease, unspecified; F25.9 Schizoaffective disorder, unspecified; F31.9 Bipolar disorder, unspecified; Z79.899 Other long term (current) drug therapy; Z87.891 Personal history of nicotine dependence; Z79.4 Long term (current) use of insulin; Z86.73 Personal history of transient ischemic attack (TIA), and cerebral infarction without residual deficits; E86.0 Dehydration
CPT/HCPCS: 36415; 71045; 72100; 72170; 80048; 80061; 81003; 82040; 82550; 82962; 83036; 83735; 83880; 83930; 83935; 84100; 84300; 84439; 84443; 84481; 84484; 85025; 85027; 86376; 87077; 87186; 93005; 96361; 96365; 96375; 97162; 97166; 99285; J0696; J1815; J1885; J3475; J3490; J7030; J7040; J7060

== ENCOUNTER 2025-05-27 11:41 | Inpatient (IN) | payer MEDICARE, MEDICAID ==
[~2025-05-27] VITALS: Ht 170.2 cm; Wt 73.9 kg
[~2025-05-27 11:41] MED LIST changes: -CEFP200T13 MT; -CEPH500C2 MT; -CYCL5TAB3 PO; -IBUP-2028 MT; -IBUP-2029 PO; -INSU100I28 SUBCUT; -LIDO-53 TP; +LISI10TA26 PO; -LISI20TA31 PO; -LOPE2TAB26 PO; -MELA5TAB21 PO; -MULT-380 PO; +OXYB5TAB21 PO; -OXYBUTYNIN 10 MG PO; -QUET25TA36 PO; +RISP1 PO; -SERT25TA74 PO; -TEMA15CA PO; -TRAM50TA3 PO
[2025-05-27 11:44] VITALS: O2SAT 96
[2025-05-27 12:14] LABS: BASOPHILS % 0.5 % (0.0-2.0); EOSINOPHILS % 1.2 % (0.0-5.0); HEMATOCRIT. 33.4 % (36.0-48.0); HEMOGLOBIN. 10.6 g/dL (12.0-16.0); LYMPHOCYTES % 26.8 % (20.0-50.0); MEAN PLATELET VOLUME 8.6 fl (7.4-10.4); MONOCYTES % 10.1 % (2.0-8.0); NEUTROPHILS % 61.4 % (40.0-76.0); PLATELET 229 x1000/uL (130-400); RED BLOOD CELL COUNT 3.68 mill/uL (4.2-5.4); RED CELL DISTRIBUTION WIDTH 17.6 % (11.6-14.6)
[2025-05-27 12:31] LABS: CREATININE 1.0 mg/dL (0.6-1.0); UREA NITROGEN BLOOD 11.0 mg/dL (9-23)
[2025-05-27 12:33] LABS: TROPONIN I HIGH SENSITIVITY 8 ng/L (3.0-34)
[2025-05-27] MEDS ORDERED: DEXTROSE 50% WATER 50ML SYRINGE IV PRN (13:45)
[2025-05-27] MEDS ORDERED: CLONIDINE 0.1MG TABLET PO PRN (13:45)
[2025-05-27] MEDS ORDERED: DOCUSATE SODIUM 100MG CAPSULE PO PRN (13:45)
[2025-05-27] MEDS ORDERED: GUAIFENESIN 200MG/10ML SUGAR FREE UDC PO PRN (13:45)
[2025-05-27] MEDS ORDERED: ACETAMINOPHEN 325MG TABLET PO PRN (13:45)
[2025-05-27] MEDS ORDERED: IPRATROPIUM/ALBUTEROL 0.5-3(2.5)MG/3ML NEB HHN PRN (13:45)
[2025-05-27] MEDS ORDERED: ONDANSETRON HCL 4MG/2ML INJ IV PRN (13:45)
[2025-05-27] MEDS ORDERED: MAGNESIUM/ALUMINUM HYDROXIDE/SIMETHICONE 30ML UDC PO PRN (13:45)
[2025-05-27 15:06] VITALS: BP 148/77; PULSE 65; RESP 18; TEMP 36.1; O2SAT 97
[2025-05-27] MEDS: SODIUM CHLORIDE 0.9% 500 ML IV ONE (15:12)
[2025-05-27] MEDS: SODIUM CHLORIDE 0.9% 1,000 ML IV SCH (15:14)
[2025-05-27 15:36] VITALS: BP 148/77; PULSE 65; RESP 18; TEMP 36.14
[2025-05-27 16:00] VITALS: BP 125/63; PULSE 82; RESP 18; TEMP 36.6; O2SAT 98
[2025-05-27] MEDS: INSULIN LISPRO 100 UNITS/ML SUBCUT SCH (17:21)
[2025-05-27] MEDS: BLOOD SUGAR DIAGNOSTIC STRIP TEST SCH (17:21)
[2025-05-27 19:31] LABS: *AMPHETAMINES SCREEN URINE NEGATIVE (NEGATIVE); *BARBITURATES SCREEN URINE NEGATIVE (NEGATIVE); *BENZODIAZEPINES SCREEN URINE NEGATIVE (NEGATIVE); *COCAINE SCREEN URINE NEGATIVE (NEGATIVE); CANNABINOID URINE SCREEN NEGATIVE (NEGATIVE); ECSTASY MDMA SCREEN URINE NEGATIVE (NEGATIVE); METHADONE URINE SCREEN NEGATIVE (NEGATIVE); OPIATES URINE SCREEN NEGATIVE (NEGATIVE); PHENCYCLIDINE URINE SCREEN NEGATIVE (NEGATIVE)
[2025-05-27 19:48] LABS: CLARITY URINE CLEAR (CLEAR); COLOR URINE YELLOW (YELLOW); GLUCOSE URINE NEGATIVE (NEGATIVE); KETONES URINE NEGATIVE (NEGATIVE); LEUKOCYTE ESTERASE URINE 1+ (NEGATIVE); NITRITE URINE POSITIVE (NEGATIVE); OCCULT BLOOD URINE NEGATIVE (NEGATIVE); PH URINE 6.0 (4.5-8.0); PROTEIN URINE NEGATIVE (NEGATIVE); SPECIFIC GRAVITY URINE 1.007 (1.005-1.030); UROBILINOGEN URINE 0.2 E.U./dL (0.2-1.0)
[2025-05-27 20:00] VITALS: BP 141/65; PULSE 69; RESP 18; TEMP 36.4; O2SAT 99
[2025-05-27 20:51] LABS: BACTERIA URINE 3+; RBC URINE 0-2 /hpf (0-2); SQUAMOUS EPITHELIAL CELL URINE FEW /lpf (RARE/1+)
[2025-05-27] MEDS: OXYBUTYNIN CHLORIDE 5MG TABLET PO SCH (21:13)
[2025-05-27] MEDS: ATORVASTATIN CALCIUM 40MG TABLET PO SCH (21:13)
[2025-05-27] MEDS: GABAPENTIN 300MG CAPSULE PO SCH (21:13)
[2025-05-27] MEDS: LISINOPRIL 10MG TABLET PO SCH (21:13)
[2025-05-27] MEDS: SERTRALINE HCL 25MG TABLET PO SCH (21:14)
[2025-05-27] MEDS: INSULIN GLARGINE 100 UNITS/ML SUBCUT SCH (21:16)
[2025-05-28] VITALS: BP 132/70; PULSE 70; RESP 18; TEMP 36.4; O2SAT 99
[2025-05-28] MEDS: ACETAMINOPHEN 325MG TABLET PO PRN (03:55)
[2025-05-28 04:00] VITALS: BP 136/56; PULSE 69; RESP 18; TEMP 36.6; O2SAT 99
[2025-05-28 06:43] LABS: HEMATOCRIT. 32.5 % (36.0-48.0); HEMOGLOBIN. 10.4 g/dL (12.0-16.0); MEAN PLATELET VOLUME 9.8 fl (7.4-10.4); PLATELET 216 x1000/uL (130-400); RED BLOOD CELL COUNT 3.60 mill/uL (4.2-5.4); RED CELL DISTRIBUTION WIDTH 18.1 % (11.6-14.6)
[2025-05-28 06:48] LABS: PROTEIN TOTAL 7.8 g/dL (6.0-8.3)
[2025-05-28 06:49] LABS: ASPARTATE AMINOTRANSFERASE 17 IU/L (<34); BILIRUBIN DIRECT 0.1 mg/dL (<=3.0); BILIRUBIN TOTAL 0.3 mg/dL (0.1-1.0)
[2025-05-28 06:50] LABS: CREATININE 0.9 mg/dL (0.6-1.0); TRIGLYCERIDE 56 mg/dL (0-150); UREA NITROGEN BLOOD 10 mg/dL (9-23)
[2025-05-28 06:51] LABS: LDL CHOLESTEROL 42 mg/dL (5-100)
[2025-05-28 06:52] LABS: T4 FREE 1.34 ng/dL (0.89-1.76)
[2025-05-28 06:58] LABS: FOLIC ACID (FOLATE) SERUM 19.38 ng/mL (>5.38)
[2025-05-28 06:59] LABS: VITAMIN B12 SERUM 550 pg/mL (211-911)
[2025-05-28 08:00] VITALS: BP 134/67; PULSE 83; RESP 18; TEMP 36.6; O2SAT 98
[2025-05-28] MEDS: ASPIRIN 81MG EC TABLET PO SCH (09:23)
[2025-05-28] MEDS: PANTOPRAZOLE SODIUM 40 MG/VIAL IV SCH (09:23)
[2025-05-28] MEDS: QUETIAPINE FUMARATE 25MG TABLET PO SCH (09:23)
[2025-05-28 12:00] VITALS: BP 127/54; PULSE 62; RESP 18; TEMP 36.7; O2SAT 98
[2025-05-28] MEDS ORDERED: CEFTRIAXONE 1GM/50ML 50 ML IV SCH (13:00)
[2025-05-28] MEDS: CEFTRIAXONE 1GM/50ML 50 ML IV SCH (13:16)
[2025-05-28 13:45] LABS: BAND% 5.0 % (1.0-6.0); EOSINOPHILS % MANUAL 6.0 % (0.0-5.0); LYMPHOCYTES % MANUAL 27.0 % (20.0-60.0); MONOCYTES % MANUAL 8.0 % (2.0-8.0); NEUTROPHILS % MANUAL 54.0 % (45.0-75.0); PLATELET ESTIMATE NORMAL
[2025-05-28 16:00] VITALS: BP 137/68; PULSE 63; RESP 18; TEMP 36.6; O2SAT 97
[2025-05-28] MEDS ORDERED: HYDRALAZINE 20MG/ML VIAL IV PRN (16:30)
[2025-05-28 20:00] VITALS: BP 120/57; PULSE 65; RESP 18; TEMP 36.9; O2SAT 98
[2025-05-28] MEDS: ENOXAPARIN 40MG/0.4ML SYR SUBCUT SCH (21:05)
[2025-05-28] MEDS: INSULIN GLARGINE 100 UNITS/ML SUBCUT SCH (21:09)
[2025-05-29] VITALS (7 sets, daily range): BP systolic 18–127; BP diastolic 56–114; PULSE 65–82; RESP 18–66; TEMP 36.5–36.8; O2SAT 97–100
[2025-05-29 06:50] LABS: CREATININE 1.0 mg/dL (0.6-1.0)
[2025-05-29 06:51] LABS: UREA NITROGEN BLOOD 8.0 mg/dL (9-23)
[2025-05-29 07:07] LABS: BASOPHILS % 0.5 % (0.0-2.0); EOSINOPHILS % 3.0 % (0.0-5.0); HEMATOCRIT. 32.3 % (36.0-48.0); HEMOGLOBIN. 10.3 g/dL (12.0-16.0); LYMPHOCYTES % 23.2 % (20.0-50.0); MEAN PLATELET VOLUME 9.2 fl (7.4-10.4); MONOCYTES % 14.0 % (2.0-8.0); NEUTROPHILS % 59.3 % (40.0-76.0); PLATELET 204 x1000/uL (130-400); RED BLOOD CELL COUNT 3.54 mill/uL (4.2-5.4); RED CELL DISTRIBUTION WIDTH 17.6 % (11.6-14.6)
[2025-05-29] MEDS ORDERED: TOPUD PO ×2 (14:59→15:05)
[2025-05-29] MEDS ORDERED: QUET25TA PO ×2 (14:59→15:05)
[2025-05-29] MEDS ORDERED: LANTUSUD SUBCUT ×2 (14:59→15:05)
[2025-05-29] MEDS ORDERED: PROT20 PO (14:59)
[2025-05-29] MEDS ORDERED: SERT25TA74 PO ×2 (14:59→15:05)
[2025-05-29] MEDS ORDERED: LIP40 PO ×2 (14:59→15:05)
[2025-05-29] MEDS ORDERED: DOCU-422 PO ×2 (14:59→15:05)
[2025-05-29] MEDS ORDERED: SULF1TAB48 PO (15:01)
== END 2025-05-29 20:10 | DRG 690 ==
LOC: ER 12:00 → 8WST 13:03 → EDBEDREQ 13:07 → EDBEDREQTM 13:07
PROVIDERS: ADMIT Internal Medicine; ATTEND Internal Medicine
DX: N39.0 Urinary tract infection, site not specified (principal); R62.7 Adult failure to thrive; E11.9 Type 2 diabetes mellitus without complications; I10 Essential (primary) hypertension; J44.9 Chronic obstructive pulmonary disease, unspecified; F20.9 Schizophrenia, unspecified; F32.A Depression, unspecified; N32.81 Overactive bladder; F41.1 Generalized anxiety disorder; E78.00 Pure hypercholesterolemia, unspecified; I25.10 Atherosclerotic heart disease of native coronary artery without angina pectoris; Z68.29 Body mass index [BMI] 29.0-29.9, adult; Z79.4 Long term (current) use of insulin; Z79.899 Other long term (current) drug therapy; Z68.25 Body mass index [BMI] 25.0-25.9, adult
CPT/HCPCS: 36415; 71045; 80048; 80061; 80076; 80305; 81003; 82607; 82728; 82746; 82962; 83036; 83540; 83550; 84145; 84439; 84443; 84484; 85025; 85044; 87077; 87186; 93005; 99285; A6449; J0696; J1650; J1815; J2470; J7030; J7040